=== PATIENT | female | born 1980 | race Caucasian/White ===

== ENCOUNTER 2017-03-13 21:30 | Emergency (ER) | payer SELFPAY ==
[~2017-03-13] VITALS: Ht 167.6 cm; Wt 108.0 kg
[2017-03-13 21:39] VITALS: BP 119/70
== END 2017-03-13 22:09 | disposition left against medical advice (07) ==
LOC: ER 22:03
DX: M79.643 Pain in unspecified hand (principal); Z53.21 Procedure and treatment not carried out due to patient leaving prior to being seen by health care provider